=== PATIENT | female | born 1995 | race Two or more races ===

== ENCOUNTER 2018-11-27 09:21 | Emergency (ER) | payer OTHER ==
[~2018-11-27] VITALS: Ht 165.1 cm; Wt 72.6 kg
[2018-11-27 10:46] LABS: Basophils # (auto) 0 uL; Basophils % (auto) 0.3 % (0.0-2.0); Eosinophils # (auto) 0 uL; Eosinophils % (auto) 0.1 % (0.0-7.0); Hematocrit 35.9 % (36.0-46.0); Hemoglobin 12.2 g/dL (12.2-16.2); Lymphocytes # (auto) 1.6 uL; Lymphocytes % (auto) 13.9 % (10.0-50.0); Mean Corpuscular Hemoglobin 31.4 pg (28.0-32.0); Mean Corpuscular Hgb Conc. 34.1 g/dL (32.0-36.0); Mean Corpuscular Volume 92.3 fL (80.0-100.0); Monocytes # (auto) 0.7 uL; Monocytes % (auto) 5.9 % (0.0-12.0); Neutrophils # (auto) 8.9 uL; Neutrophils % (auto) 79.8 % (37.0-80.0); Platelet Count (auto) 313 10^3/uL (140-450); Red Blood Cells 3.89 10^6/uL (4.0-5.20); Red Cell Distribution Width 12.4 % (11.8-14.3); White Blood Cell 11.2 10^3/uL (4.4-10.8)
[2018-11-27 11:00] LABS: Calcium 8.1 mg/dL (8.5-10.1)
[2018-11-27 11:02] LABS: BUN/Creatinine Ratio 5.5
[2018-11-27 11:04] VITALS: BP 116/73
[2018-11-27 11:05] LABS: Bilirubin, Total 0.2 mg/dL (0.2-1.0); Total Protein 7.4 g/dL (6.4-8.2)
[2018-11-27 11:10] LABS: Potassium 2.9 mmol/L (3.5-5.1)
[2018-11-27] MEDS ORDERED: POTASSIUM CHL 20 Meq TABLET PO ONE (11:30)
[2018-11-27 11:57] LABS: Amphetamine Screen, Urine NEGATIVE (NEGATIVE); Barbiturate Scree,Urine NEGATIVE (NEGATIVE); Benzodiazephine Screen, Urine NEGATIVE (NEGATIVE); Cannabinoid Screen, Urine NEGATIVE (NEGATIVE); Cocaine Screen, Urine POSITIVE (NEGATIVE); Opiate Scree,Urine NEGATIVE (NEGATIVE); Phencyclidine Screen, Urine NEGATIVE (NEGATIVE)
[2018-11-27 12:39] LABS: Urine Bacteria NONE SEEN /hpf (None Seen); Urine Blood 3+ /uL (Negative); Urine Budding Yeast MODERATE /hpf (None Seen); Urine Mucus FEW (None Seen); Urine Specific Gravity 1.021 (1.001-1.035); Urine WBC 80 /hpf (0 - 5)
== END 2018-11-27 12:20 | disposition home or self-care (01) ==
LOC: ER 09:30
DX: N93.8 Other specified abnormal uterine and vaginal bleeding (principal); E87.6 Hypokalemia; F14.10 Cocaine abuse, uncomplicated; F10.10 Alcohol abuse, uncomplicated; F17.210 Nicotine dependence, cigarettes, uncomplicated; F12.10 Cannabis abuse, uncomplicated; Z32.02 Encounter for pregnancy test, result negative; Y90.9 Presence of alcohol in blood, level not specified
CPT/HCPCS: 36415; 80053; 80307; 81001; 81025; 84702; 85025; 99283; J7030

== ENCOUNTER 2024-10-17 21:38 | Observation (INO) | payer BC, OTHER ==
--- NOTE | 2024-10-17 22:24 | DVH ---
OB ULTRASOUND, LIMITED CLINICAL INDICATION: decreased movement TECHNIQUE: Multiple grayscale ultrasound and M-mode images were obtained of the pelvis for evaluation of intrauterine . COMPARISON: None FINDINGS /impression: Biophysical profile: 04/20 breathin movements: 2 tone: 2 Amniotic fluid: 2 ( TERENCE 11.8 cm) heart rate: 143 beats per minute position: Vertex Placenta location: Anterior Note is made of a single nuchal cord
--- NOTE | 2024-10-17 23:22 | DVHDS2 ---
Physician Discharge Progress N Final Diagnosis: DFM, resolved Operations or Procedures: Operations or Procedures S: 29 yo , IUP @ 36.0wks presents to OB triage c/o DFM. Pt states she has not felt her baby move at all today, and last feeling movement two days ago. She reports feeling two kicks since arriving to triage. Denies UCs, VB, LOF, BRUNSON, vision changes, RUQ pain PNC with Cara @ [facility] O: VSS EFM: FHR 140, moderate variability, +Accelerations, -Decelerations BPP 04/20 A: 29 yo, , IUP @ 36.0wks NST reactive DFM, resolved P: D/C home FKC/PTL/PreE precautions reviewed F/U with Dr Marroquin as scheduled Other Interventions Other Interventions [place] [address] Ph: [phone] DIAGNOSTIC IMAGING Diagnostic Imaging Report : [id number] Signed PATIENT: MIKE VASQUEZ ACCT: [id number] UNIT: [id number] : 1995 LOC: [facility] ROOM / BED: TRIAGE2 / A AGE / SEX: 29 / F ADM STATUS: ADM IN SERVICE 45 ORDERING PHYSICIAN: RUBEN QUARLES CNM PROCEDURE(s): BPP - BIOPHYSICAL PROFILE REASON: decreased movement ORDER NUMBER(s): [id number], ACCESSION NUMBER(s): [id number] OB ULTRASOUND, LIMITED CLINICAL INDICATION: decreased movement TECHNIQUE: Multiple grayscale ultrasound and M-mode images were obtained of the pelvis for evaluation of intrauterine . COMPARISON: None FINDINGS /impression: Biophysical profile: 04/20 breathin movements: 2 tone: 2 Amniotic fluid: 2 ( TERENCE 11.8 cm) heart rate: 143 beats per minute position: Vertex Placenta location: Anterior Note is made of a single nuchal cord ATED BY: MANAV TO MD DICTATED DATE/TIME: 10/17/242220 SIGNED BY: MANAV TO MD SIGNED DATE/TIME: 10/17/242220 CC: Condition on Discharge: Stable Disposition: Home Discharge Instructions: Diet: Regular Activity: No Restrictions, As Tolerated Follow Up/Referral: Please keep all follow up appointments with your primary OBGYN Medications: see med list Follow Up Care: Specialist: f/u with Dr. Marroquin as scheduled Discharge Statement: DELMAR PHELPS STUDENTMDW Oct 17, 2024 23:22
== END 2024-10-17 22:57 | disposition home or self-care (01) ==
LOC: LDRP 21:38
PROVIDERS: ADMIT Obstetrics & Gynecology; ATTEND Obstetrics & Gynecology
DX: O36.8130 Decreased fetal movements, third trimester, not applicable or unspecified (principal); O69.81X0 Labor and delivery complicated by cord around neck, without compression, not applicable or unspecified; Z3A.36 36 weeks gestation of pregnancy; Z79.899 Other long term (current) drug therapy
CPT/HCPCS: 59025; 76818; 81002; 94760; G0378

== ENCOUNTER 2024-11-14 07:45 | Observation (INO) | payer BC ==
--- NOTE | 2024-11-14 13:54 | DVH ---
BIOPHYSICAL PROFILE HISTORY: term TECHNIQUE: Multiple transabdominal real-time grayscale sonographic images through the gravid uterus of the fetus with duplex Doppler color flow and M-mode spectral analysis Comparison: 10/17/2024 FINDINGS: BIOPHYSICAL PROFILE: breathing score: 2 movement score: 2 tone score: 2 Quantitative TERENCE score: 2 (TERENCE: 12.99 Cm.) Total score: 8 The cervix is not well-visualized Single live fetus in cephalic presentation. heart rate 151 beats per minute. Anterior placenta without previa or abruption No nuchal cord is visualized on current study. The Cord appears to be draped over the face IMPRESSION: Biophysical profile score: 8 No nuchal cord is visualized on current study. The Cord appears to be draped over the face
[2024-11-14] MEDS ORDERED: PREN1TAB71 OR (14:00)
--- NOTE | 2024-11-14 21:25 | DVHDS2 ---
Physician Discharge Progress N Final Diagnosis: testing for term Operations or Procedures: Operations or Procedures 29yo IUP@40.0wks, +FM, Denies LOF/VB/BRUNSON/vision changes/RUQ pain. VSS NST reactive kick counts and Preeclampsia warning signs reviewed. PTL precautions given and when to return to the hospital. Other Interventions Other Interventions [address] [address] Ph: [phone] DIAGNOSTIC IMAGING Diagnostic Imaging Report : [id number] Signed PATIENT: MIKE VASQUEZ ACCT: [id number] UNIT: [id number] : 1995 LOC: [facility] ROOM / BED: TRIAGE2 / A AGE / SEX: 29 / F ADM STATUS: ADM IN SERVICE 1315 ORDERING PHYSICIAN: RUBEN QUARLES CNM PROCEDURE(s): BPP - BIOPHYSICAL PROFILE REASON: term ORDER NUMBER(s): [id number], ACCESSION NUMBER(s): [id number] BIOPHYSICAL PROFILE HISTORY: term TECHNIQUE: Multiple transabdominal real-time grayscale sonographic images through the gravid uterus of the fetus with duplex Doppler color flow and M-mode spectral analysis Comparison: 10/17/2024 FINDINGS: BIOPHYSICAL PROFILE: breathing score: 2 movement score: 2 tone score: 2 Quantitative TERENCE score: 2 (TERENCE: 12.99 Cm.) Total score: 8 The cervix is not well-visualized Single live fetus in cephalic presentation. heart rate 151 beats per minute. Anterior placenta without previa or abruption No nuchal cord is visualized on current study. The Cord appears to be draped ove r the face IMPRESSION: Biophysical profile score: 8 No nuchal cord is visualized on current study. The Cord appears to be draped over the face ATED BY: DARBY ANDRES DO DICTATED DATE/TIME: 11/14/24 1351 SIGNED BY: DARBY ANDRES DO SIGNED DATE/TIME: 11/14/24 1351 CC: Condition on Discharge: Stable Disposition: Home Discharge Instructions: Diet: Regular Activity: No Restrictions, As Tolerated Medications: see med list Follow Up Care: Specialist: f/u in 2 days Discharge Statement: "Patient was advised to return to the ER or call 911 if any headaches, dizziness, shortness of breath, chest pain, abdominal pain, bleeding, fevers, or worsening of medical condition. Patient was counseled about treatment plan, medications, possible side effects, patientverbalized understanding. All questions were answered to the best of my ability. This discharge took greater then 30 minutes in planning, reviewing documentation, counseling the patient, and discussing with other team members." Visit Coding OBGYN Date of Service: Nov 14, 2024 Billing Provider: RUBEN QUARLES CNM OPERATOR MAINTAINER Common Visit Codes: [id number] OBS CARE (LOW) OPERATOR MAINTAINER Procedure Codes: 73349-33- NON-STRESS TEST RUBEN QUARLES CNM Nov 14, 2024 21:25
== END 2024-11-14 15:33 | disposition home or self-care (01) ==
LOC: LDRP 12:57
PROVIDERS: ADMIT Obstetrics & Gynecology; ATTEND Obstetrics & Gynecology
DX: O48.0 Post-term pregnancy (principal); Z98.890 Other specified postprocedural states; Z79.899 Other long term (current) drug therapy; Z3A.40 40 weeks gestation of pregnancy
CPT/HCPCS: 76818; 81002; G0378; 59025

== ENCOUNTER 2024-11-16 06:20 | Observation (INO) | payer BC ==
[~2024-11-16 06:20] MED LIST: PREN1TAB71 OR
--- NOTE | 2024-11-16 12:02 | DVH ---
BIOPHYSICAL PROFILE HISTORY: post dates TECHNIQUE: Multiple transabdominal real-time grayscale sonographic images through the gravid uterus of the fetus with duplex Doppler color flow and M-mode spectral analysis FINDINGS: BIOPHYSICAL PROFILE: breathing score: 2 movement score: 2 tone score: 2 Quantitative TERENCE score: 2 (TERENCE: 12.7 Cm.) Total score: 8 Single live fetus in cephalic presentation. heart rate 139 beats per minute. Anterior placenta without previa or abruption IMPRESSION: Biophysical profile score: 8
--- NOTE | 2024-11-17 15:21 | DVHDS2 ---
Physician Discharge Progress N Final Diagnosis: iup at 40wks Operations or Procedures: Operations or Procedures nst,sono Condition on Discharge: Good Disposition: Home Discharge Instructions: Diet: Regular Activity: No Restrictions, As Tolerated Medications: na Follow Up Care: Specialist: 2d Discharge Statement: "Patient was advised to return to the ER or call 911 if any headaches, dizziness, shortness of breath, chest pain, abdominal pain, bleeding, fevers, or worsening of medical condition. Patient was counseled about treatment plan, medications, possible side effects, patientverbalized understanding. All questions were answered to the best of my ability. This discharge took greater then 30 minutes in planning, reviewing documentation, counseling the patient, and discussing with other team members." Visit Coding OBGYN Date of Service: Nov 16, 2024 Billing Provider: JOSE ENRIQUE GILLILAND DO BENEFITS ADVISOR Common Visit Codes: [id number] INP/OBS CARE (HIGH) BENEFITS ADVISOR Procedure Codes: 62070-78- NON-STRESS TEST JOSE ENRIQUE GILLILAND DO Nov 17, 2024 15:21
== END 2024-11-16 12:33 | disposition home or self-care (01) ==
LOC: UNDOADMOB 11:00 → LDRP 11:00
PROVIDERS: ADMIT Obstetrics & Gynecology; ATTEND Obstetrics & Gynecology
DX: O48.0 Post-term pregnancy (principal); Z3A.40 40 weeks gestation of pregnancy; Z79.899 Other long term (current) drug therapy
CPT/HCPCS: 76818; 81002; 94760; G0378; 59025

== ENCOUNTER 2024-11-18 08:14 | Inpatient (IN) | payer BC ==
[~2024-11-18] VITALS: Ht 162.6 cm; Wt 93.0 kg
[2024-11-18] MEDS ORDERED: LIDOCAINE 2%HCL (LOCAL ANESTH.) INJ 20ML MDV IJ PRN (08:30)
[2024-11-18] MEDS ORDERED: BUTORPHANOL TARTRATE 2 MG/1 ML VIAL IV PRN ×2 (08:30)
[2024-11-18 09:05] LABS: Basophils # (auto) 0.1 10 ^3/uL (0-0.2); Basophils % (auto) 0.4 % (0.0-2.0); Eosinophils # (auto) 0.1 10 ^3/uL (0-0.8); Eosinophils % (auto) 0.9 % (0.0-7.0); Hematocrit 38.3 % (36.0-46.0); Hemoglobin 13.6 g/dL (12.2-16.2); Lymphocytes # (auto) 2.3 10 ^3/uL (0.4-5.4); Lymphocytes % (auto) 18.7 % (10.0-50.0); Mean Corpuscular Hemoglobin 33.5 pg (28.0-32.0); Mean Corpuscular Hgb Conc. 35.6 g/dL (32.0-36.0); Mean Corpuscular Volume 94.1 fL (80.0-100.0); Monocytes # (auto) 0.7 10 ^3/uL (0-1.3); Monocytes % (auto) 5.5 % (0.0-12.0); Neutrophils # (auto) 9.2 10 ^3/uL (1.6-8.6); Neutrophils % (auto) 74.5 % (37.0-80.0); Nucleated Red Blood Cells % 0.1 %; Platelet Count (auto) 217 10^3/uL (140-450); Red Blood Cells 4.07 10^6/uL (4.0-5.20); White Blood Cell 12.3 10^3/uL (4.4-10.8)
[2024-11-18 09:21] LABS: Amphetamine Screen, Urine Neg (NEGATIVE); Barbiturate Scree,Urine Neg (NEGATIVE); Benzodiazephine Screen, Urine Neg (NEGATIVE); Cannabinoid Screen, Urine Neg (NEGATIVE); Cocaine Screen, Urine Neg (NEGATIVE); Opiate Scree,Urine Neg (NEGATIVE); Phencyclidine Screen, Urine Neg (NEGATIVE)
[2024-11-18 09:23] LABS: Alanine Aminotransferase 31 U/L (7-40); Albumin 4.1 g/dL (3.2-4.8); Anion Gap 8 (5-15); Aspartate Aminotransferase 28 U/L (13-40); BUN/Creatinine Ratio 13.6 (10.0-20.0); Bilirubin, Total 0.5 mg/dL (0.2-1.0); Calcium 9.7 mg/dL (8.7-10.4); Glucose 81 mg/dL (74-106); Potassium 3.8 mmol/L (3.5-5.1); Total Protein 6.5 g/dL (5.7-8.2)
[2024-11-18 09:25] LABS: Blood Urea Nitrogen 8 mg/dL (9-23); Carbon Dioxide 19 mmol/L (20-31); Chloride 109 mmol/L (98-107); Sodium 136 mmol/L (136-145)
[2024-11-18 09:26] LABS: Alkaline Phosphatase 246 U/L (46-116); INR 0.92 (0.9-1.15); Partial Thromboplastin Time 25.7 SEC (24.5-34.5); Prothrombin Time 9.8 sec (9.3-11.8)
[2024-11-18 09:33] LABS: Urine Bacteria FEW /hpf (None Seen); Urine Blood Negative /uL (Negative); Urine Clarity Clear (Clear); Urine Protein, UAD Negative (Negative); Urine Specific Gravity 1.003 (1.001-1.035); Urine Squamous Epithelial Cell FEW /hpf (<5); Urine Urobilinogen Normal (Negative); Urine WBC < 1 /HPF (0-5); Urine pH 6.5 (5.0-9.0)
[2024-11-18 09:38] LABS: Urine Color Light-Yellow (Yellow)
[2024-11-18] MEDS: PHISODERM TOP SOLN 240ML BTL TOP PRN (10:25)
[2024-11-18] MEDS: LACTATED RINGER'S 1,000 ML IV SCH (10:25)
[2024-11-18] MEDS: WITCH HAZEL-GLYCERIN PAD TOP PRN (10:25)
[2024-11-18] MEDS: DERMOPLAST 60ML BOTTLE TOP PRN (10:25)
[2024-11-18] MEDS: miSOPROStol 50 MCG per PRE-CUT 1/2 TAB PO PRN (10:30)
--- NOTE | 2024-11-18 11:44 | DVHHP2 ---
OB CC & HPI Date Date of Admission: Nov 18, 2024 Patient Identification: : 1 Para: 0 EDC: Nov 18, 2024 EGA: 40 weeks Chief Complaints: Reason for admission: induction of labor Admission Nurse Assessment Rev: Yes History of Present Complaints care good by her primary doctor Chasity; we do have her Pre records were reviewed as well. Patient was scheduled for an induction by her primary I am covering for the weekend have will manage. Past Medical History Cardiac: No pertinent Hx Pulmonary: No pertinent Hx Central Nervous System: No pertinent Hx GI: No pertinent Hx Hemotology/Oncology: No pertinent Hx Hepatobiliary: No pertinent Hx Psychiatric: No pertinent Hx Musculoskeletal: No pertinent Hx Rheumotologic: No pertinent Hx Infectious Disease: No peritnent Hx ENT: No pertinent Hx Renal/: No pertinent Hx Endocrine: No pertinent Hx Dermatology: No pertinent Hx Past Surgical History: No pertinent Hx OB History OB History Care: Good Care Obstetrical Complications: None Medical Complications: None Allergies: Coded Allergies: NO KNOWN ALLERGIES (Unverified , 11/27/18) Home Meds Reported Medications Vit W/ Ferrous Fumara (PNV PLUS MULTIVI) Plus Tab, 1 OR, TAB 11/14/24 Current Medications Current Medications Medications (Trade) Dose Ordered Sig/Filiberto Route PRN Reason Start Time Stop Time Status Last Admin Lactated Ringer's 1,000 ml @ 125 mls/hr Q8H IV 11/18/24 08:30 11/18/24 10:25 Witch Kaylah (Tucks) 1 pad PRN PRN TOP PERINEAL AREA DISCOMFORT 11/18/24 08:30 11/18/24 10:25 Sodium Lauryl Sulfate (Phisoderm) 240 ml PRN PRN TOP PERINEAL AREA DISCOMFORT 11/18/24 08:30 11/18/24 10:25 Benzocaine (Dermoplast) 1 applic PRN PRN TOP PERINEAL AREA DISCOMFORT 11/18/24 08:30 11/18/24 10:25 Butorphanol Tartrate (Stadol Injection) 1 mg Q4HPRN PRN IV MODERATE PAIN (4-6 PAIN SCALE) 11/18/24 08:30 Butorphanol Tartrate (Stadol Injection) 2 mg Q4HPRN PRN IV SEVERE PAIN (7-10 PAIN SCALE) 11/18/24 08:30 Lidocaine HCl (Xylocaine) 20 ml ONCE PRN IJ PERINEAL AREA DISCOMFORT 11/18/24 08:30 Misoprostol (Cytotec) 50 mcg Q4HPRN PRN PO CERVICAL RIPENING 11/18/24 09:45 11/18/24 10:30 Family & Social History Family/Social History Blood Type: O+ Rubella: unknown RPR/VDRL: Negative GBS Status: Unknown HBsAG: Negative Review of Systems Constitutional: No symptom reported Ears, Nose, & Throat: No symptom reported Eyes: No symptom reported Pulmonary/Respiratory: No symptom reported Cardiovascular: No symptom reported Gastrointestinal: No symptom reported Genitourinary: No symptom reported Musculoskeletal: No symptom reported Skin: No symptom reported Psychiatric: No symptom reported Endocrine: No symptom reported Hemotologic/Lymphatic: No symptom reported OB Admission Exam Physical Exam HEENT: TMs Normal, Fontanelles Normal, Nasal Mucosa Normal, Eyes non-injected, Oropharynx Normal, PERRLA, Moist Membranes, EOMI Heart: Rhythm Normal Lungs: Clear Abdomen: Gravid Cervical Dilatation: 1cm Effacement: 25% Station: -3 Membranes: Intact Heart Rate: 130's Accelerations: Accelerations Present Decelerations: No Decelerations Short Term Variability: Present Veterinary Receptionist Variability: Average (6-25) Contractions on Admission: None OB Plan Plan Admitting Diagnosis: induction BHUPINDER ANNA DO Nov 18, 2024 11:44
[2024-11-19] MEDS: fentaNYL CITRATE 100 MCG/2 ML VL IV ONE (07:45)
--- NOTE | 2024-11-19 10:10 | DVHPN2 ---
Chief Complaints Patient reports: No new complaints, Other (Status post 5 sedative cervix 1 cm intact heart tones reassuring) Nursing reports: No new complaints, No abdominal pain, No chest pain, No dizziness, No cough Objective General: Normal Lungs: Normal Cardiovascular: Normal Abdominal: Normal (Gravid vertex position) Musculoskeletal: Normal Extremities: Normal Neurological: Normal Studies Laboratory Tests 11/18/24 08:38 Test 11/18/24 08:38 Range/Units Serum Glucose 81 74-106 mg/dL Ass/Plan Assessment Hospital to induction leigha presents post 5 Cytotec 1 cm high intact reassuring heart tones maternal stable Plan Continue induction BHUPINDER ANNA DO Nov 19, 2024 10:10
[2024-11-19] MEDS ORDERED: TERBUTALINE SULFATE 1 MG/ML 1ML VIAL SC PRN (11:00)
[2024-11-19] MEDS: ROPIVACAINE HCL 200 ML ONE (11:44)
[2024-11-19] MEDS: LACT. RINGERS/OXYTOCIN 20UNITS 1,000 ML IV SCH (11:45)
[2024-11-19 12:06] LABS: RPR Non Reactive (Non Reactive)
[2024-11-19] MEDS ORDERED: SODIUM CHLORIDE 0.9% 1,000 ML IUPC SCH (18:15)
[2024-11-19] MEDS ORDERED: SODIUM CHLORIDE 0.9% 300 ML IUPC ONE (18:15)
[2024-11-19] MEDS: ceFAZolin 2 GM/D5W50ml 50 ML IV ONE (19:31)
[2024-11-20] VITALS (15 sets, daily range): BP systolic 95–151; BP diastolic 48–88; PULSE 98–144; RESP 15–18; TEMP 98.1–99; O2SAT 97–99
[2024-11-20] MEDS: ACETAMINOPHEN 325 MG TAB PO PRN (00:25)
[2024-11-20] MEDS: ROPIVACAINE HCL 200 ML ONE (00:55)
[2024-11-20] MEDS: ceFAZolin 1GM/50ML 50 ML IV SCH (02:51)
[2024-11-20] MEDS: ONDANSETRON HCL 4 MG/2 ML VIAL ONE (06:11)
[2024-11-20] MEDS ORDERED: ONDANSETRON HCL 4 MG/2 ML VIAL IM ONE (06:15)
--- NOTE | 2024-11-20 06:55 | LDN2 ---
Labor and Delivery Note Date 11/20/24 Age 29 1 Para 0 AB 0 EDC post dates EGA post dates Diagnosis induction labor Vaginal Delivery: VTX Vacuum Assisted: No Placenta: Spontaneous Sex: Male Apgars 9/9 Nuchal Cord Transected: No Amniotic Fluid: Clear Extension: Yes (1 st degree midline posterior) Repaired with 2-0 chromic EBL 350cc Labs Blood Bank 11/18/24 08:38: Blood Type O POSITIVE Complications none Conditions stable Contract Negotiator none present BHUPINDER ANNA DO Nov 20, 2024 06:55
[2024-11-20] MEDS ORDERED: ONDANSETRON ODT 4 MG TAB PO PRN (07:00)
[2024-11-20] MEDS ORDERED: LACT. RINGERS/OXYTOCIN 20UNITS 500 ML IV ONE (07:00)
[2024-11-20] MEDS ORDERED: ACETAMINOPHEN 325 MG TAB PO PRN (07:00)
[2024-11-20] MEDS: LIDOCAINE HCL 2 %PF INJ 10ML AMP IJ ONE (07:08)
[2024-11-20] MEDS: fentaNYL CITRATE 100 MCG/2 ML VL ONE (07:08)
[2024-11-20] MEDS ORDERED: MORPHINE SULF PF 5 MG/10 ML VIAL ONE (08:57)
[2024-11-20] MEDS ORDERED: LIDOCAINE 2% (LOCAL ANESTH.) PF 5ml SDV ONE (08:58)
[2024-11-20] MEDS ORDERED: oxyTOCIN 10 UNIT/ML 10ML VIAL ONE (09:02)
[2024-11-20] MEDS ORDERED: ePHEDrine SULFATE 50 MG/ML AMP ONE (09:02)
[2024-11-20] MEDS ORDERED: ONDANSETRON HCL 4 MG/2 ML VIAL ONE (09:41)
--- NOTE | 2024-11-20 10:02 | DVHPN2 ---
Chief Complaints Patient reports: No new complaints, Other (Patient has been complete for over 2 hours she has been pushing for over 45 minutes with adequate contraction strength and internal monitors IUPC FSE. Vacuum was placed to attempt to rotate infant infant is a [facility] clinic without any descent and/or rotation as we did a gentle test of vacuum with 1 contraction. I recommended section for failure to descend a sudden clinic pelvic positioning.) Nursing reports: No new complaints, No abdominal pain, No chest pain, No dizziness, No cough, Other (Consent risks benefits complications alternatives discussed not limited to infection bleeding anesthesia acute chronic pain damage to adjacent organs bladder ureter nerves muscles bowel. If injury were to occur it will be repaired as recognized. She understands that some injuries will not be recognized still . She understands that there is always at least 500-1500 cc EBL and the transfusion was not be unlikely in the event that she needs blood transfusion she denies being Mosque she understands the risks HIV transfusion reaction. She also understands the remote risks of DVT PE mi stroke . We also discussed in if significant hemorrhage and uncontrolled she could even lose her uterus during . All questions answered and encouraged.) Objective Vitals Vital Signs Date Time Temp Pulse Resp B/P (MAP) Pulse Ox O2 Delivery O2 Flow Rate FiO2 11/20/24 00:25 100.9 Medications Current Medications Medications (Trade) Dose Ordered Sig/Filiberto Route PRN Reason Start Time Stop Time Status Last Admin Acetaminophen (Tylenol Tablet) 650 mg Q4HP PRN PO MILD PAIN (1-3 PAIN SCALE) 11/20/24 07:00 Acetaminophen (Tylenol Tablet) 650 mg Q6HP PRN PO PAIN SCALE 1-3 OR TEMP>100.4 11/20/24 00:15 11/20/24 00:25 Cefazolin Sodium 50 ml @ 100 mls/hr Q8H IV 11/20/24 03:00 11/20/24 02:51 Docusate Sodium (Colace Capsule) 200 mg HS PO 11/20/24 22:00 Ibuprofen (Motrin Tablet) 800 mg Q6HR PO 11/20/24 12:00 Ondansetron HCl (Zofran Po) 4 mg Q4HPRN PRN PO NAUSEA / VOMITING 11/20/24 07:00 Oxytocin 1,000 ml @ 6 ml/hr Q24H IV 11/19/24 11:00 3/9/25 11:45 Sodium Chloride 1,000 ml @ 125 mls/hr Q8H IUPC 11/19/24 18:15 Terbutaline Sulfate (Brethine Inj) 0.25 mg ONCE PRN SC Uterine tachysystole 11/19/24 11:00 General: Normal Lungs: Normal Cardiovascular: Normal Abdominal: Normal (Gravid vertex position) Musculoskeletal: Normal Extremities: Normal Neurological: Normal Others Pelvic exam 100% effaced 0 station clear amniotic fluid IUPC FSE in place. Studies Laboratory Tests 11/18/24 08:38 Test 11/18/24 08:38 Range/Units Serum Glucose 81 74-106 mg/dL Ass/Plan Assessment Hospital to induction bleeders presents post 5 Cytotec 1 cm high intact reassuring heart tones maternal stable Plan Emergent section, maternal spike 102 on antibiotics prophylactically for chorio amnionitis.. Or team notified as well as in ICU cloud engineer present in nursery. BHUPINDER ANNA DO Nov 20, 2024 10:02
--- NOTE | 2024-11-20 10:07 | DVHOP2 ---
Operative Report - 2 Report Details Date: 11/20/24 Preop Diagnosis: Post dates, failure to progress Postop Diagnosis: Same Surgeon: Yaneli Anna Anesthesiologist: Chrissie WARD Anesthesia: Regional Drains: Burk Implant: None Consent: The patient was informed of the risks and benefits of the procedure. These include but are not limited to complications of anesthesia, postoperative infection, incomplete relief of symptoms, recurrence of symptoms, damage to blood vessels, nerves and tendons, deep venous thrombosis, pulmonary embolism a nd possible need for repeat surgery in the future. Complications: None Indications for Surgery: Fail to descend, deep variables heart tone decelerations Name of Procedure Performed Primary low transverse section Procedure Details Procedure Details: Patient taken the operating placed in sitting position epidural anesthesia bolused she was then placed left lateral tilt prepped draped sterile fashion. Low Pfannenstiel incision carried through skin with scalpel down to the rectus fascia nicked in midline carried laterally with scissors rectus muscle midline peritoneum and identified entered with sharp dissection peritoneal incis ion extended vesicouterine peritoneum dissected off lower uterine segment and a low transverse uterine incision made with scalpel down the current membranes which were hour glassing1+ meconium current membranes ruptured bluntly and infant found to be in OP position 1 hand placed lower uterine segment and a head head essentially delivered spontaneously nose and mouth bulb suctioned shoulders and torso then delivered without difficulty had an [place] immediate vigorous cry and tone 1 minute delay of cord clamp was performed cord blood gas as well as umbilical cord sample was taken placenta removed uterus exteriorized cleared of all clots and debris irrigated and closed with double layer of 0 Vicryl the vesicouterine peritoneum was incorporated into the 2nd running continuous closure of the hysterotomy incision. Having complete hemostasis EBL 650 cc gutters cleared and cul-de-sac of all clots and debris with group copiously irrigated placed uterus aside to reinfected the incision for complete hemostasis peritoneum then closed after instrument sponge sponge count correct x1 with running continuous 2-0 Vicryl rectus fascia closed with a running continuous a PDS interrupted chromic in a sutures were used to close Camper's Karie's fascia and a Sonido needle with Prolene was used to close the subcuticular as well as benzoin Steri-Strips placed patient was then frog-legged uterus from vagina cleared of all clots and debris patient taken to PACU in stable condition. APGARS 9/9 Weight 7lbs 5 oz Specimen: Placenta cord gas umbilical blood Condition Good Disposition PACU BHUPINDER ANNA DO Nov 20, 2024 10:07
[2024-11-20] MEDS ORDERED: LACT. RINGERS/OXYTOCIN 20UNITS 1,000 ML IV SCH (10:15)
[2024-11-20] MEDS ORDERED: ceFAZolin 1GM/50ML 50 ML IV SCH (10:15)
[2024-11-20] MEDS ORDERED: LACTATED RINGER'S 1,000 ML IV SCH (10:15)
[2024-11-20] MEDS ORDERED: HYDROmorphone HCL 2 MG/ML VL/or syr IV PRN ×2 (10:15→11:45)
[2024-11-20] MEDS: ceFAZolin 2 GM/D5W50ml 50 ML IV ONE (10:18)
[2024-11-20] MEDS ORDERED: MEPERIDINE HCL (25 MG/ML) 1ML VIAL ONE (10:30)
[2024-11-20] MEDS ORDERED: ONDANSETRON HCL 4 MG/2 ML VIAL IV ONE (11:45)
[2024-11-20] MEDS ORDERED: ACETAMINOPHEN IV 1000 MG/100ML (10MG/ML) IV PRN (11:45)
[2024-11-20] MEDS ORDERED: MEPERIDINE HCL (25 MG/ML) 1ML VIAL IV PRN (11:45)
[2024-11-20] MEDS ORDERED: GENTAMICIN PER PHARMACY 0 ML IV SCH (12:30)
[2024-11-20] MEDS: LACTATED RINGER'S 1,000 ML IV SCH (13:30)
[2024-11-20] MEDS ORDERED: GENTAMICIN SULFATE IV ONE (14:00)
[2024-11-20] MEDS ORDERED: D5W 5% IV ONE (14:00)
[2024-11-20 14:29] LABS: Basophils # (auto) 0 10 ^3/uL (0-0.2); Eosinophils # (auto) 0 10 ^3/uL (0-0.8); Hemoglobin 9.7 g/dL (12.2-16.2); Monocytes # (auto) 2.2 10 ^3/uL (0-1.3)
[2024-11-20 14:34] LABS: Basophils % (auto) 0.1 % (0.0-2.0); Hematocrit 28.2 % (36.0-46.0); Lymphocytes % (auto) 3.3 % (10.0-50.0); Mean Corpuscular Hgb Conc. 34.5 g/dL (32.0-36.0); Mean Corpuscular Volume 95.6 fL (80.0-100.0); Monocytes % (auto) 7.4 % (0.0-12.0); Neutrophils % (auto) 89.2 % (37.0-80.0); Platelet Count (auto) 193 10^3/uL (140-450); Red Blood Cells 2.95 10^6/uL (4.0-5.20); Red Cell Distribution Width 12.8 % (11.8-14.3)
[2024-11-20 14:37] LABS: White Blood Cell 30.3 10^3/uL (4.4-10.8)
[2024-11-20] MEDS: AMPICILLIN SOD 2GM INJ 2 GM in SODIUM CHL 0.9% 100 ML IV SCH (14:46)
[2024-11-20 14:49] LABS: Platelet Estimate Adequate; RBC Morphology Normal
[2024-11-20] MEDS: D5W 5% IV SCH (15:51)
[2024-11-20] MEDS: GENTAMICIN SULFATE IV SCH (15:51)
[2024-11-20] MEDS: NALOXONE HCL 0.4 MG/ML VIAL IV ONE (16:12)
[2024-11-20] MEDS: ePHEDrine SULFATE 50 MG/ML AMP IV ONE (16:12)
[2024-11-20] MEDS: LACT. RINGERS/OXYTOCIN 20UNITS 500 ML IV ONE ×2 (16:22)
[2024-11-20] MEDS: GELATIN 1 SPONGE SIZE 100 TOP ONE (16:25)
[2024-11-20 16:53] LABS: Lactic Acid w/Reflex 2.1 mmol/L (0.4-2.0)
[2024-11-20] MEDS: ACETAMINOPHEN IV 1000 MG/100ML (10MG/ML) IV PRN (17:42)
[2024-11-20] MEDS ORDERED: DOCUSATE SOD 100 MG CAP PO SCH (22:00)
[2024-11-20] MEDS: DOCUSATE SOD 100 MG CAP PO SCH (22:00)
[2024-11-20] MEDS: metroNIDAZOLE 500MG/100ML 100 ML IV SCH (22:50)
[2024-11-21] VITALS (15 sets, daily range): BP systolic 92–116; BP diastolic 50–66; PULSE 91–130; RESP 16–18; TEMP 97.8–99.2; O2SAT 94–99
[2024-11-21] MEDS: traMADol HCL 50 MG TAB PO PRN (00:14)
[2024-11-21 04:06] LABS: Chlamydia Trachomatis, NAA Negative (Negative); Neisseria gonorrhoeae, NAA Negative (Negative)
--- NOTE | 2024-11-21 05:41 | DVHPN2 ---
Chief Complaints Patient reports: No new complaints, Feels better, Other (pod #1 stable improved cbc pending) Nursing reports: No new complaints, No abdominal pain, No chest pain, No dizziness, No cough, Other (Consent risks benefits complications alternatives discussed not limited to infection bleeding anesthesia acute chronic pain damage to adjacent organs bladder ureter nerves muscles bowel. If injury were to occur it will be repaired as recognized. She understands that some injuries will not be recognized still . She understands that there is always at least 500-1500 cc EBL and the transfusion was not be unlikely in the event that she needs blood transfusion she denies being Restorationism she understands the risks HIV transfusion reaction. She also understands the remote risks of DVT PE mi stroke . We also discussed in if significant hemorrhage and uncontrolled she could even lose her uterus during . All questions answered and encouraged.) Objective Vitals Vital Signs Date Time Temp Pulse Resp B/P (MAP) Pulse Ox O2 Delivery O2 Flow Rate FiO2 11/21/24 05:00 102 18 108/55 (72) 95 11/21/24 03:00 98.2 98.2 11/20/24 18:45 Room Air 11/20/24 11:33 0 99 Medications Current Medications Medications (Trade) Dose Ordered Sig/Filiberto Route PRN Reason Start Time Stop Time Status Last Admin Acetaminophen (Ofirmev) 1,000 mg [id number] PRN IV PAIN SCALE 1-3 OR TEMP>100.4 11/20/24 17:15 11/21/24 22:01 11/21/24 05:21 Acetaminophen/ Hydrocodone Bitart (Wayzata 5/325MG Tab) 1 tab Q4HPRN PRN PO FOR PAIN 1-6 11/20/24 10:15 Acetaminophen/ Hydrocodone Bitart (Wayzata 5/325MG Tab) 2 tab Q4HPRN PRN PO FOR PAIN 7-10 11/20/24 10:15 Ampicillin Sodium 2 gm/Sodium Chloride 100 ml @ 100 mls/hr Q6HR IV 11/20/24 13:00 11/20/24 22:10 Docusate Sodium (Colace Capsule) 200 mg HS PO 11/20/24 22:00 Gentamicin Sulfate 650 mg/ Dextrose 116.25 ml @ 108.645 mls/hr DAILY@1400 IV 11/20/24 14:00 11/20/24 15:51 Gentamicin Sulfate 0 ml @ 0 mls/hr PER PHARMACY IV 11/20/24 12:30 Ibuprofen (Motrin Tablet) 800 mg Q6HR PO 11/20/24 12:00 Lactated Ringer's 1,000 ml @ 125 mls/hr Q8H IV 11/20/24 10:15 11/20/24 21:01 Metronidazole 100 ml @ 100 mls/hr Q8HR IV 11/20/24 22:00 11/20/24 22:50 Tramadol HCl (Ultram) 50 mg Q6HP PRN PO MODERATE PAIN (4-6 PAIN SCALE) 11/21/24 00:15 11/21/24 00:14 General: Normal Lungs: Normal Cardiovascular: Normal Abdominal: Normal (wound c/d/i ext no pain or edema) Musculoskeletal: Normal Extremities: Normal Skin: Normal Neurological: Normal Studies Laboratory Tests 11/20/24 13:15 11/18/24 08:38 Test 11/18/24 08:38 Range/Units Serum Glucose 81 74-106 mg/dL Ass/Plan Assessment POD #1 stable improved Plan Advance care BHUPINDER ANNA DO Nov 21, 2024 05:41
[2024-11-21] MEDS: IBUPROFEN 800 MG TAB PO SCH (08:55)
[2024-11-21 09:02] LABS: Eosinophils # (auto) 0 10 ^3/uL (0-0.8); Eosinophils % (auto) 0.1 % (0.0-7.0); Hemoglobin 7.8 g/dL (12.2-16.2); Neutrophils # (auto) 16.8 10 ^3/uL (1.6-8.6)
[2024-11-21 09:03] LABS: Basophils # (auto) 0.1 10 ^3/uL (0-0.2); Basophils % (auto) 0.3 % (0.0-2.0); Hematocrit 21.9 % (36.0-46.0); Lymphocytes # (auto) 2.1 10 ^3/uL (0.4-5.4); Lymphocytes % (auto) 10.7 % (10.0-50.0); Mean Corpuscular Hemoglobin 34.1 pg (28.0-32.0); Mean Corpuscular Hgb Conc. 35.5 g/dL (32.0-36.0); Monocytes # (auto) 1.1 10 ^3/uL (0-1.3); Monocytes % (auto) 5.5 % (0.0-12.0); Neutrophils % (auto) 83.4 % (37.0-80.0); Platelet Count (auto) 164 10^3/uL (140-450); Red Blood Cells 2.28 10^6/uL (4.0-5.20); Red Cell Distribution Width 12.8 % (11.8-14.3); White Blood Cell 20.1 10^3/uL (4.4-10.8)
[2024-11-21 10:07] LABS: Treponema Pallidum Ab LC Non Reactive (Non Reactive)
[2024-11-21] MEDS: SIMETHICONE 80 MG CHEWABLE TABLET PO SCH (17:49)
[2024-11-21] MEDS: HYDROcodone-ACET 5/325MG TAB PO PRN (17:58)
[2024-11-21] MEDS: ONDANSETRON HCL 4 MG/2 ML VIAL IV PRN (19:50)
[2024-11-21] MEDS ORDERED: metroNIDAZOLE 500MG/100ML 100 ML IV SCH (22:10)
[2024-11-21] MEDS: metroNIDAZOLE 500MG/100ML 100 ML IV SCH (22:15)
[2024-11-22] VITALS (7 sets, daily range): BP systolic 99–112; BP diastolic 56–71; PULSE 95–112; RESP 16–60; TEMP 97.8–98.3; O2SAT 94–99
[2024-11-22] MEDS: IBUPROFEN 800 MG TAB PO PRN (00:41)
[2024-11-22] MEDS: SODIUM CHLORIDE 0.9% 500 ML IV ONE (00:41)
[2024-11-22] MEDS: IRON SUCROSE COMPLEX 110 ML IV ONE (02:03)
[2024-11-22 03:53] LABS: Urine Bacteria None Seen /hpf (None Seen)
[2024-11-22 04:09] LABS: Urine Blood 3+ /uL (Negative); Urine Budding Yeast OCCASIONAL /hpf (None Seen); Urine Clarity Turbid (Clear); Urine Color Light-Orange (Yellow); Urine Mucus FEW (None Seen); Urine Protein, UAD 1+ (Negative); Urine Squamous Epithelial Cell FEW /hpf (<5); Urine Urobilinogen Normal (Negative); Urine WBC 27 /HPF (0-5); Urine pH 5.5 (5.0-9.0)
[2024-11-22 04:37] LABS: Basophils # (auto) 0 10 ^3/uL (0-0.2); Basophils % (auto) 0.2 % (0.0-2.0); Eosinophils # (auto) 0 10 ^3/uL (0-0.8); Eosinophils % (auto) 0.1 % (0.0-7.0); Hematocrit 20.6 % (36.0-46.0); Hemoglobin 7.2 g/dL (12.2-16.2); Lymphocytes # (auto) 1.9 10 ^3/uL (0.4-5.4); Lymphocytes % (auto) 9.7 % (10.0-50.0); Mean Corpuscular Hemoglobin 33.5 pg (28.0-32.0); Mean Corpuscular Hgb Conc. 34.9 g/dL (32.0-36.0); Monocytes # (auto) 0.7 10 ^3/uL (0-1.3); Monocytes % (auto) 3.5 % (0.0-12.0); Neutrophils % (auto) 86.5 % (37.0-80.0); Nucleated Red Blood Cells % 0.1 %; Platelet Count (auto) 193 10^3/uL (140-450); Red Blood Cells 2.14 10^6/uL (4.0-5.20); Red Cell Distribution Width 12.9 % (11.8-14.3); White Blood Cell 19.7 10^3/uL (4.4-10.8)
[2024-11-22 04:59] LABS: Alanine Aminotransferase 14 U/L (7-40); Anion Gap 8 (5-15); Aspartate Aminotransferase 29 U/L (13-40); BUN/Creatinine Ratio 12.3 (10.0-20.0); Bilirubin, Total 0.3 mg/dL (0.2-1.0); Chloride 107 mmol/L (98-107); Glucose 98 mg/dL (74-106); Potassium 3.8 mmol/L (3.5-5.1)
[2024-11-22 05:04] LABS: Albumin 2.9 g/dL (3.2-4.8); Alkaline Phosphatase 129 U/L (46-116); Blood Urea Nitrogen 7 mg/dL (9-23); Calcium 7.8 mg/dL (8.7-10.4); Carbon Dioxide 19 mmol/L (20-31); Sodium 134 mmol/L (136-145); Total Protein 4.7 g/dL (5.7-8.2)
--- NOTE | 2024-11-22 07:26 | DVHPN2 ---
Progress Note Date Seen: Nov 22, 2024 Subjective POD#2 s/p 1' C/S, Chorioamnionitis, PPH S: Pain controlled. Mild lochia. Eugenio CP/ SOB or dizziness. vital signs Vital Sign Date Time Temp Pulse Resp B/P (MAP) Pulse Ox O2 Delivery O2 Flow Rate FiO2 11/22/24 03:05 97.8 95 18 104/64 (77) 95 97.8 11/21/24 19:15 Room Air 11/20/24 11:33 0 99 Total Intake and Output 11/21/24 11/21/24 11/22/24 15:00 23:00 07:00 Output Total 800 ml 1200 ml 650 ml Balance -800 ml -1200 ml -650 ml medications Current Medications Medications Dose Ordered Sig/Filiberto Route Start Time Stop Time Status Last Admin Dose Admin Docusate Sodium 200 mg HS PO 11/20/24 22:00 11/21/24 22:14 200 MG Acetaminophen/ Hydrocodone Bitart 1 tab Q4HPRN PRN PO 11/20/24 10:15 11/21/24 17:58 1 TAB Acetaminophen/ Hydrocodone Bitart 2 tab Q4HPRN PRN PO 11/20/24 10:15 Lactated Ringer's 1,000 ml @ 125 mls/hr Q8H IV 11/20/24 10:15 11/21/24 12:21 125 MLS/HR Ampicillin Sodium 2 gm/Sodium Chloride 100 ml @ 100 mls/hr Q6HR IV 11/20/24 13:00 11/22/24 05:57 100 MLS/HR Gentamicin Sulfate 0 ml @ 0 mls/hr PER PHARMACY IV 11/20/24 12:30 Gentamicin Sulfate 650 mg/ Dextrose 116.25 ml @ 108.645 mls/hr DAILY@1400 IV 11/20/24 14:00 11/21/24 15:00 108.645 MLS/HR Tramadol HCl 50 mg Q6HP PRN PO 11/21/24 00:15 11/21/24 00:14 50 MG Ibuprofen 800 mg Q6HR PRN PO 11/21/24 09:15 11/22/24 00:41 800 MG Dimethicone 80 mg QID PO 11/21/24 18:00 11/22/24 05:56 80 MG Ondansetron HCl 4 mg Q4HP PRN IV 11/21/24 19:30 11/21/24 19:50 4 MG Metronidazole 100 ml @ 100 mls/hr Q8HR IV 11/21/24 22:10 laboratory and microbiology Laboratory Tests 11/22/24 04:00 Test 11/22/24 04:00 Range/Units Serum Glucose 98 74-106 mg/dL Objective O: AFVSS Chest: heart and lung sounds normal. Abd soft, non-tender, fundus firm, BS, no rebound or guarding, Incision - dressing and incision clean, dry, intact Ext Neg Homans, Non-tender, edema Lochia - minimal Labs Reviewed Assessment/Plan POD#2 s/p 1' C/S for arrest of descent/ CPD Chorioamnionitis delivered PPH, acute drop in H/H (asymptomatic) Plan: Continue current care Repeat CBC in a.m. - Blood transfusion if symptomatic or hypotensive, pt agrees Continue IV antibiotics Plan discussed with: Patient Visit Coding OBGYN Date of Service: Nov 22, 2024 Billing Provider: MELISSA HAYES DO RADIO INTELLIGENCE OPERATOR Common Visit Codes: [id number] INP/OBS CARE(HIGH) MELISSA HAYES DO Nov 22, 2024 07:26
--- NOTE | 2024-11-22 07:30 | DVHPN2 ---
Chief Complaints Patient reports: No new complaints, Feels better Nursing reports: No new complaints, No chest pain, No dizziness, No cough, Other (Consent risks benefits complications alternatives discussed not limited to infection bleeding anesthesia acute chronic pain damage to adjacent organs bladder ureter nerves muscles bowel. If injury were to occur it will be repaired as recognized. She understands that some injuries will not be recognized still . She understands that there is always at least 500- 1500 cc EBL and the transfusion was not be unlikely in the event that she needs blood transfusion she denies being Sikhism she understands the risks HIV transfusion reaction. She also understands the remote risks of DVT PE mi stroke . We also discussed in if significant hemorrhage and uncontrolled she could even lose her uterus during . All questions answered and encouraged.) Objective Vitals Vital Signs Date Time Temp Pulse Resp B/P (MAP) Pulse Ox O2 Delivery O2 Flow Rate FiO2 11/22/24 03:05 97.8 95 18 104/64 (77) 95 97.8 11/21/24 19:15 Room Air 11/20/24 11:33 0 99 Medications Current Medications Medications (Trade) Dose Ordered Sig/Filiberto Route PRN Reason Start Time Stop Time Status Last Admin Dimethicone (Mylicon Tab) 80 mg QID PO 11/21/24 18:00 11/22/24 05:56 Ibuprofen (Motrin Tablet) 800 mg Q6HR PRN PO BREAKTHROUGH PAIN 11/21/24 09:15 11/22/24 00:41 Metronidazole 100 ml @ 100 mls/hr Q8HR IV 11/21/24 22:10 Ondansetron HCl (Zofran) 4 mg Q4HP PRN IV NAUSEA / VOMITING 11/21/24 19:30 11/21/24 19:50 General: Normal (pt is ambulating and voiding freely, Is not yet passing gas, VSS, with formula supplementation and bomding well with . ) Head/Eyes: Normal (Denies BRUNSON or dizziness) ENT: Normal Neck: Normal (Supple) Lungs: Normal (CTAB), Normal inspection, Normal breath sounds, Lungs clear Cardiovascular: Normal, Regular rate and rhythm, Normal heart sound Heart Murmur: no murmur Abdominal: Normal (wound c/d/i ext no pain or edema), Soft, Non tender (Mild distention) Musculoskeletal: Normal, Full Range of Motion, Normal Inspection Extremities: Normal (2+ edema, bilateral negative Gladys's sign), Normal pulses Skin: Normal, Normal color, Warm Neurological: Normal (No deficeits) Others Lochia: Scant Studies Laboratory Tests 11/22/24 04:00 Test 11/22/24 04:00 Range/Units Serum Glucose 98 74-106 mg/dL Ass/Plan Assessment S/P Primary section Post-op Day 2 in stable condition Plan Encourage ambulation Analgesia as needed Supportive care Continue routine post-op care Evaluate for discharge tomorrow Visit Coding OBGYN Date of Service: Nov 22, 2024 Billing Provider: CÉSAR PEÑA CNM [employer]AR[employer] SUPERVISOR Common Visit Codes: [id number] INP/OBS CARE(HIGH) CÉSAR PEÑA CNM Nov 22, 2024 07:30
[2024-11-22] MEDS: HYDROcodone-ACET 5/325MG TAB PO PRN (09:06)
[2024-11-22] MEDS ORDERED: metroNIDAZOLE 500MG/100ML 100 ML IV SCH (13:00)
[2024-11-22] MEDS ORDERED: FER325T PO (16:50)
[2024-11-22] MEDS ORDERED: DOCU-265 PO (16:50)
[2024-11-22] MEDS ORDERED: HYDR-4902 PO (16:50)
[2024-11-22] MEDS ORDERED: CEPH500C PO (16:50)
[2024-11-22] MEDS ORDERED: IBUP-1455 PO (16:50)
[2024-11-23 03:30] VITALS: BP 116/78; PULSE 100; RESP 16; TEMP 98.3; O2SAT 99
[2024-11-23 04:33] LABS: Basophils # (auto) 0 10 ^3/uL (0-0.2); Basophils % (auto) 0.3 % (0.0-2.0); Hemoglobin 7.4 g/dL (12.2-16.2); Monocytes # (auto) 0.5 10 ^3/uL (0-1.3); White Blood Cell 12.5 10^3/uL (4.4-10.8)
[2024-11-23 04:36] LABS: Eosinophils # (auto) 0.2 10 ^3/uL (0-0.8); Eosinophils % (auto) 1.7 % (0.0-7.0); Hematocrit 21.7 % (36.0-46.0); Lymphocytes # (auto) 1.7 10 ^3/uL (0.4-5.4); Lymphocytes % (auto) 13.8 % (10.0-50.0); Mean Corpuscular Hgb Conc. 34.2 g/dL (32.0-36.0); Mean Corpuscular Volume 96.3 fL (80.0-100.0); Monocytes % (auto) 4.1 % (0.0-12.0); Neutrophils % (auto) 80.1 % (37.0-80.0); Nucleated Red Blood Cells % 0.2 %; Platelet Count (auto) 243 10^3/uL (140-450); Red Blood Cells 2.26 10^6/uL (4.0-5.20); Red Cell Distribution Width 13.1 % (11.8-14.3)
[2024-11-23 04:58] LABS: Alanine Aminotransferase 28 U/L (7-40); Anion Gap 7 (5-15); BUN/Creatinine Ratio 10.2 (10.0-20.0); Bilirubin, Total 0.3 mg/dL (0.2-1.0); Carbon Dioxide 24 mmol/L (20-31); Chloride 107 mmol/L (98-107); Glucose 86 mg/dL (74-106); Potassium 3.7 mmol/L (3.5-5.1); Sodium 138 mmol/L (136-145)
[2024-11-23 04:59] LABS: Albumin 3.2 g/dL (3.2-4.8); Alkaline Phosphatase 130 U/L (46-116); Aspartate Aminotransferase 51 U/L (13-40); Blood Urea Nitrogen 5 mg/dL (9-23); Calcium 8.2 mg/dL (8.7-10.4); Total Protein 5.1 g/dL (5.7-8.2)
--- NOTE | 2024-11-23 06:21 | DVHDS2 ---
Discharge Summary Date of Admission Nov 18, 2024 at 08:14 Date of Discharge: Nov 23, 2024 Admitting Diagnosis Term , labor Labs/Diagnostic Data: Laboratory Results Test 11/23/24 04:04 11/22/24 04:00 11/22/24 03:40 11/20/24 23:21 White Blood Count 12.5 10^3/uL (4.4-10.8) Red Blood Count 2.26 10^6/uL (4.0-5.20) Hemoglobin 7.4 g/dL (12.2-16.2) Hematocrit 21.7 % (36.0-46.0) Mean Corpuscular Volume 96.3 fL (80.0-100.0) Mean Corpuscular Hemoglobin 33.0 pg (28.0-32.0) Mean Corpuscular Hemoglobin Concent 34.2 g/dL (32.0-36.0) Red Cell Distribution Width 13.1 % (11.8-14.3) Platelet Count 243 10^3/uL (140-450) Mean Platelet Volume 7.1 fL (6.9-10.8) Neutrophils (%) (Auto) 80.1 % (37.0-80.0) Lymphocytes (%) (Auto) 13.8 % (10.0-50.0) Monocytes (%) (Auto) 4.1 % (0.0-12.0) Eosinophils (%) (Auto) 1.7 % (0.0-7.0) Basophils (%) (Auto) 0.3 % (0.0-2.0) Neutrophils # (Auto) 10.0 10 ^3/uL (1.6-8.6) Lymphocytes # (Auto) 1.7 10 ^3/uL (0.4-5.4) Monocytes # (Auto) 0.5 10 ^3/uL (0-1.3) Eosinophils # (Auto) 0.2 10 ^3/uL (0-0.8) Basophils # (Auto) 0 10 ^3/uL (0-0.2) Nucleated Red Blood Cells 0.2 % Sodium Level 138 mmol/L (136-145) Potassium Level 3.7 mmol/L (3.5-5.1) Chloride Level 107 mmol/L (98-107) Carbon Dioxide Level 24 mmol/L (20-31) Anion Gap 7 (5-15) Blood Urea Nitrogen 5 mg/dL (9-23) Creatinine 0.49 mg/dL (0.550-1.02) Glomerular Filtration Rate Calc 129 mL/min (>90) BUN/Creatinine Ratio 10.2 (10.0-20.0) Serum Glucose 86 mg/dL (74-106) Calcium Level 8.2 mg/dL (8.7-10.4) Total Bilirubin 0.3 mg/dL (0.2-1.0) Aspartate Amino Transferase (AST) 51 U/L (13-40) Alanine Aminotransferase (ALT) 28 U/L (7-40) Alkaline Phosphatase 130 U/L (46-116) Total Protein 5.1 g/dL (5.7-8.2) Albumin 3.2 g/dL (3.2-4.8) Lactic Acid Level 0.9 mmol/L (0.4-2.0) Urine Color Light-orange (Yellow) Urine Clarity Turbid (Clear) Urine pH 5.5 (5.0-9.0) Urine Specific [place] 1.020 (1.001-1.035) Urine Protein 1+ (Negative) Urine Ketones Trace (Negative) Urine Blood 3+ /uL (Negative) Urine Nitrite Negative (Negative) Urine Bilirubin Negative (Negative) Urine Urobilinogen Normal mg/dL (Negative) Urine Leukocyte Esterase 2+ /uL (Negative) Urine RBC 259 /hpf (0 - 4) Urine Microscopic WBC 27 /HPF (0-5) Urine Squamous Epithelial Cells Few /hpf (<5) Urine Bacteria None seen /hpf (None Seen) Urine Mucus Few (None Seen) Urine Yeast (Budding) Occasional /hpf (None Urine Glucose Normal mg/dL (Normal) Random Gentamicin Level 5.6 ug/mL (0-5) Test 11/20/24 13:15 11/18/24 08:38 11/18/24 08:30 Platelet Estimate Adequate Red Blood Cell Morphology Normal Lactate Dehydrogenase 258 U/L (120-246) Prothrombin Time 9.8 sec (9.3-11.8) Prothrombin Time INR 0.92 (0.9-1.15) Activated Partial Thromboplast Time 25.7 SEC (24.5-34.5) Rapid Plasma Reagin Non reactive (Non Reactive) Treponema pallidum Ab (TP-PA) Non reactive (Non Reactive) Chlamydia trachomatis (ART) Negative (Negative) Hepatitis C Antibody Negative (Negative) Neisseria gonorrhoeae (ART) Negative (Negative) Urine Opiates Screen Neg (NEGATIVE) Urine Fentanyl Screen Neg (NEGATIVE) Urine Barbiturates Screen Neg (NEGATIVE) Urine Phencyclidine Screen Neg (NEGATIVE) Urine Amphetamines Screen Neg (NEGATIVE) Urine Benzodiazepines Screen Neg (NEGATIVE) Urine Cocaine Screen Neg (NEGATIVE) Urine Cannabinoids Screen Neg (NEGATIVE) Other Laboratory Tests 11/23/24 04:04 Brief Hx & Hospital Course: Labor and delivery complicated by intrapartum fever, chorioamnionitis CPD with arrest of descent in 2nd stage of labor, failed vacuum delivery attempt Primary c/section with acute blood loss anemia, hb 7.4 (asymptomatic) Antibiotics , improvement of WBC. Fever resolved Anemia stable, received IV Iron infusion, no need for blood products. Psych consult before discharge Discharged in stable condition Operations or Procedures 1' Low transverse C/section Condition at Discharge: Good Final Diagnosis/Problems List 1. Arrest of descent s/p 1' C/Section delivery 2. Intrapartum chorioamnionitis, resolved 3. Acute blood loss anemia Secondary Diagnosis: 1. Failed vacuum vaginal delivery 2. Depression Discharge Disposition: Home Discharge Instruct/Medications Diet: Regular Activity: Light activity Activity comment: Pelvic rest x 6 weeks Follow Up/Referral: [address] Hayes Medications: Fonda 5mg, Ibuprofen, Iron Sulfate, Colace eRX Discharge Statement: "Patient was advised to return to the ER or call 911 if any headaches, dizziness, shortness of breath, chest pain, abdominal pain, bleeding, fevers, or worsening of medical condition. Patient was counseled about treatment plan, medications, possible side effects, patientverbalized understanding. All questions were answered to the best of my ability. This discharge took greater then 30 minutes in planning, reviewing documentation, counseling the patient, and discussing with other team members." ASSESSMENT ASSESSMENT Assessment 1. Arrest of descent s/p 1' C/Section delivery 2. Intrapartum chorioamnionitis, resolved 3. Acute blood loss anemia Visit Coding OBGYN Date of Service: Nov 23, 2024 Billing Provider: MELISSA HAYES DO [employer] SYSTEMS INTEGRATOR Common Visit Codes: [id number] DISCH DAY >30MIN MELISSA HAYES DO Nov 23, 2024 06:21
[2024-11-23 07:00] VITALS: BP 102/66; PULSE 99; RESP 18; TEMP 98.3; O2SAT 99
[2024-11-23] MEDS: FUROSEMIDE 40 MG/4 ML VIAL IV ONE (07:25)
[2024-11-23 09:22] VITALS: BP 102/66; TEMP 36.8
[2024-11-23 11:00] VITALS: BP 121/72; PULSE 100; RESP 15; TEMP 98.6
--- NOTE | 2024-11-23 11:31 | DVHINCON2 ---
Date of Service if different f: Nov 23, 2024 Consultation ([facility]) Labs Laboratory Tests Test 11/18/24 08:30 11/18/24 08:38 11/20/24 13:15 11/20/24 23:21 Urine Opiates Screen Neg (NEGATIVE) Urine Fentanyl Screen Neg (NEGATIVE) Urine Barbiturates Screen Neg (NEGATIVE) Urine Phencyclidine Screen Neg (NEGATIVE) Urine Amphetamines Screen Neg (NEGATIVE) Urine Benzodiazepines Screen Neg (NEGATIVE) Urine Cocaine Screen Neg (NEGATIVE) Urine Cannabinoids Screen Neg (NEGATIVE) Prothrombin Time 9.8 sec (9.3-11.8) Prothromb Time International Ratio 0.92 (0.9-1.15) Activated Partial Thromboplast Time 25.7 SEC (24.5-34.5) Rapid Plasma Reagin Non reactive (Non Reactive) Treponema pallidum Ab (TP-PA) Non reactive (Non Reactive) Chlamydia trachomatis (ART) (LAB) Negative (Negative) Hepatitis C Antibody Negative (Negative) Neisseria gonorrhoeae (ART) (LAB) Negative (Negative) Platelet Estimate Adequate Red Blood Cell Morphology Normal Lactate Dehydrogenase 258 U/L (120-246) Random Gentamicin Level 5.6 ug/mL (0-5) Test 11/22/24 03:40 11/22/24 04:00 11/23/24 04:04 Urine Color Light-orange (Yellow) Urine Clarity Turbid (Clear) Urine pH 5.5 (5.0-9.0) Urine Specific [place] 1.020 (1.001-1.035) Urine Protein 1+ (Negative) Urine Ketones Trace (Negative) Urine Blood 3+ /uL (Negative) Urine Nitrite Negative (Negative) Urine Bilirubin Negative (Negative) Urine Urobilinogen Normal mg/dL (Negative) Urine Leukocyte Esterase 2+ /uL (Negative) Urine RBC 259 /hpf (0 - 4) Urine Microscopic WBC 27 /HPF (0-5) Urine Squamous Epithelial Cells Few /hpf (<5) Urine Bacteria None seen /hpf (None Seen) Urine Mucus Few (None Seen) Urine Yeast (Budding) Occasional /hpf (None Urine Glucose Normal mg/dL (Normal) Lactic Acid Level 0.9 mmol/L (0.4-2.0) White Blood Count 12.5 10^3/uL (4.4-10.8) Red Blood Count 2.26 10^6/uL (4.0-5.20) Hemoglobin 7.4 g/dL (12.2-16.2) Hematocrit 21.7 % (36.0-46.0) Mean Corpuscular Volume 96.3 fL (80.0-100.0) Mean Corpuscular Hemoglobin 33.0 pg (28.0-32.0) Mean Corpuscular Hemoglobin Concent 34.2 g/dL (32.0-36.0) Red Cell Distribution Width 13.1 % (11.8-14.3) Platelet Count 243 10^3/uL (140-450) Mean Platelet Volume 7.1 fL (6.9-10.8) Neutrophils (%) (Auto) 80.1 % (37.0-80.0) Lymphocytes (%) (Auto) 13.8 % (10.0-50.0) Monocytes (%) (Auto) 4.1 % (0.0-12.0) Eosinophils (%) (Auto) 1.7 % (0.0-7.0) Basophils (%) (Auto) 0.3 % (0.0-2.0) Neutrophils # (Auto) 10.0 10 ^3/uL (1.6-8.6) Lymphocytes # (Auto) 1.7 10 ^3/uL (0.4-5.4) Monocytes # (Auto) 0.5 10 ^3/uL (0-1.3) Eosinophils # (Auto) 0.2 10 ^3/uL (0-0.8) Basophils # (Auto) 0 10 ^3/uL (0-0.2) Nucleated Red Blood Cells 0.2 % Sodium Level 138 mmol/L (136-145) Potassium Level 3.7 mmol/L (3.5-5.1) Chloride Level 107 mmol/L (98-107) Carbon Dioxide Level 24 mmol/L (20-31) Anion Gap 7 (5-15) Blood Urea Nitrogen 5 mg/dL (9-23) Creatinine 0.49 mg/dL (0.550-1.02) Glomerular Filtration Rate Calc 129 mL/min (>90) BUN/Creatinine Ratio 10.2 (10.0-20.0) Serum Glucose 86 mg/dL (74-106) Calcium Level 8.2 mg/dL (8.7-10.4) Total Bilirubin 0.3 mg/dL (0.2-1.0) Aspartate Amino Transf (AST/SGOT) 51 U/L (13-40) Alanine Aminotransferase (ALT/SGPT) 28 U/L (7-40) Alkaline Phosphatase 130 U/L (46-116) Total Protein 5.1 g/dL (5.7-8.2) Albumin 3.2 g/dL (3.2-4.8) Microbiology Date/Time Source Procedure Growth Status 11/20/24 13:10 Blood Blood Culture - Preliminary NO GROWTH AFTER 48 HOURS OF INCUBATION. Resulted Appetite: Good Appearance: Stated age Psychomotor activity: WNL Behavioral: Cooperative Eye contact: Appropriate Speech: WNL Affect: Appropriate, Mood Congruent Mood: Euthymic Thought processes: Linear/Goal-directed Thought content: WNL Suicidal ideations: Absent Homicidal ideations: Absent Orientation: Person, Place, Time, Situation Memory intact: Recent Intellect: Average Abstractability: WNL Concentration: Adequate Attention: Adequate Judgement: WNL Insight: Good Vitals Vital Signs Date Time Temp Pulse Resp B/P (MAP) Pulse Ox O2 Delivery O2 Flow Rate FiO2 11/23/24 11:00 98.6 100 15 121/72 (88) 98.6 11/23/24 07:00 99 11/23/24 07:00 Room Air Current medications Current Medications Medications Dose Ordered Sig/Filiberto Route Start Time Stop Time Status Last Admin Dose Admin Docusate Sodium 200 mg HS PO 11/20/24 22:00 11/22/24 22:30 200 MG Acetaminophen/ Hydrocodone Bitart 1 tab Q4HPRN PRN PO 11/20/24 10:15 11/23/24 04:29 1 TAB Acetaminophen/ Hydrocodone Bitart 2 tab Q4HPRN PRN PO 11/20/24 10:15 11/22/24 09:06 2 TAB Lactated Ringer's 1,000 ml @ 125 mls/hr Q8H IV 11/20/24 10:15 11/21/24 12:21 125 MLS/HR Tramadol HCl 50 mg Q6HP PRN PO 11/21/24 00:15 11/21/24 00:14 50 MG Ibuprofen 800 mg Q6HR PRN PO 11/21/24 09:15 11/22/24 17:30 800 MG Dimethicone 80 mg QID PO 11/21/24 18:00 11/23/24 06:18 80 MG Ondansetron HCl 4 mg Q4HP PRN IV 11/21/24 19:30 11/21/24 19:50 4 MG Medication adjusted: No Labs ordered: No Diagnosis: adjustment disorder Plan : Patient denies feeling depressed, suicidal or homicidal thoughts, no signs of psychosis patient may discharge home after medical clearance History of Present Illness Reason for Consult : elevated score on [place] depression scale HPI : This is a 29-year-old female who gave to first, health, baby boy yesterday. Patient is evaluated via telepsychiatry. On evaluation, she reports doing well and very excited to take on this new journey of motherhood. She reports depress ion scale was given right after she delivered via which she was not expecting. She reports that her pelvis was too small, and unable to deliver vaginally. she was also having pain at the time of the depression scale. She denies feeling depressed, hopeless or anhedonia. She denies suicidal or homicidal ideation. She reports sleep and appetite are okay. She denies history of psychosis. She denies auditory/visual hallucinations or paranoia thoughts. She is future-oriented, looking forward to going home with her baby. Past Psychiatric History : She denies prior mental health diagnoses, admissions to psychiatric hospitals, or 5150 holds. She denies a prior suicide attempts or prescription of psychotropic medications. Past Medical History : She denies Social History : She lives with both parents who very supportive and looking forward to helping her. She is not to the baby's father but they are good friends, and he is very supportive. She is employed at [employer] in sales, currently on maternity leave. She denies any known family history. She denies any current or past substance abuse history. She denies any history of trauma or abuse. ALEJA BEAR DNP Nov 23, 2024 11:31
== END 2024-11-23 13:15 | disposition home or self-care (01) | DRG 787 ==
LOC: LDRP 08:14
PROVIDERS: ADMIT Obstetrics & Gynecology; ATTEND Obstetrics & Gynecology
PROC: 0HQ9XZZ Repair Perineum Skin, External Approach (ICD-10-PCS; 2024-11-20)
PROC: 3E0DXGC Introduction of Other Therapeutic Substance into Mouth and Pharynx, External Approach (ICD-10-PCS; 2024-11-20)
PROC: 10D00Z1 Extraction of Products of Conception, Low, Open Approach (ICD-10-PCS; principal; 2024-11-20 10:22)
DX: O41.1230 Chorioamnionitis, third trimester, not applicable or unspecified (principal); D62 Acute posthemorrhagic anemia; O72.1 Other immediate postpartum hemorrhage; O99.344 Other mental disorders complicating childbirth; Z3A.40 40 weeks gestation of pregnancy; Z37.0 Single live birth; F32.A Depression, unspecified; O33.9 Maternal care for disproportion, unspecified; F43.20 Adjustment disorder, unspecified; O70.0 First degree perineal laceration during delivery; O90.81 Anemia of the puerperium
CPT/HCPCS: 36415; 59025; 62282; 80053; 80170; 80307; 81001; 81002; 83605; 83615; 85025; 85610; 85730; 86592; 86780; 86803; 86850; 86900; 86901; 87040; 94760; 94762; 96360; 96361; 96365; 96366; G0378; J0131; J1756; J2003; J2405; J2590; J3490; J7060